=== PATIENT | female | born 1960 | race Caucasian/White ===

== ENCOUNTER 2016-09-25 06:55 | Day surgery (SDC) ==
[2014-08-09 14:12] VITALS: BMI 15.7
[2016-09-25] MEDS ORDERED: LIDOCAINE 1% 20 ML MDV ID ONE (07:20)
[2016-09-25] MEDS ORDERED: LIDOCAINE 1% 20 ML MDV ONE (07:20)
[2016-09-25] MEDS ORDERED: VERSED ONE (08:00)
[2016-09-25] MEDS ORDERED: DIPRIVAN 20 ML VIAL IVP ONE (08:00)
[2016-09-25 10:14] VITALS: BP 100/58; TEMP 98.2
--- NOTE | 2016-09-25 14:21 | OP ---
INDICATIONS FOR PROCEDURE: 56-year-old female presents for endoscopy. She was having intermittent dysphagia and difficulty eating. She states she is improved and questioned if she didn't have an MS flare. She still has occasional dysphagia to solids. She is scheduled for endoscopy investigation. MEDICATIONS: SEE ANESTHESIA NOTES. PROCEDURE: ENDOSCOPY, KITTITIAN DILATATION. REPORT: The risks, benefits, alternatives and limitations were discussed in detail with the patient. Informed consent was obtained. After adequate sedation was achieved, the video endoscope was introduced in the posterior pharynx and esophagus under direct vision and easily advanced down to the second portion of the duodenum. I then slowly withdrew. The duodenal mucosa appeared unremarkable as did the duodenal bulb. The antrum and body were relatively unremarkable. The scope was retroflexed to look at the cardia and fundus which was revealed a small hiatal hernia. I could also see a small Schatzki's ring causing minimal luminal narrowing. The scope was anteflexed and withdrawn back through the esophagus. There was a 1 cm hiatal hernia. There was a Schatzki's ring. The esophageal mucosa appeared unremarkable its entire length otherwise. I advanced the scope back down the gastric lumen, I placed a guidewire and withdrew the scope. Over the guidewire I easily advanced a 54 Fr. R[place] dilator. The patient tolerated the procedure well with stable vital signs and pulse oximetry throughout. IMPRESSION: 1. 1 CM SMALL HIATAL HERNIA 2. SCHATZKI'S RING DILATED ABOVE RECOMMENDATIONS: 1. She has improved overall from a GI perspective. I reinforced strict reflux precautions. 2. Will see her back in the office as needed. 3. She is advised to continue with small meals throughout the day and cut and chew her food into small pieces. CC: DR. WIL ESTEVES
== END 2016-09-25 09:35 | disposition home or self-care (01) ==
LOC: SURG 06:55
PROVIDERS: ATTEND Internal Medicine Gastroenterology
DX: R13.10 Dysphagia, unspecified (principal); R63.3 Feeding difficulties; K22.2 Esophageal obstruction; K44.9 Diaphragmatic hernia without obstruction or gangrene

== ENCOUNTER 2018-06-10 06:57 | Day surgery (SDC) | payer OTHER ==
[2014-08-09 14:12] VITALS: BMI 15.7
[2018-06-10] MEDS ORDERED: LIDOCAINE 1% 20 ML MDV ID STA (07:19)
[2018-06-10 07:21] VITALS: TEMP 98.1
[2018-06-10] MEDS ORDERED: DIPRIVAN 20 ML VIAL IVP ONE (09:10)
[2018-06-10] MEDS ORDERED: SUBLIMAZE ONE (09:10)
[2018-06-10] MEDS ORDERED: VERSED ONE (09:10)
[2018-06-10 16:04] VITALS: BP 141/56
--- NOTE | 2018-06-11 10:54 | OP ---
INDICATIONS FOR PROCEDURE: 57-year-old female presents for colonoscopy exam. She has a family history of colon polyps. She is scheduled for a screening exam. Her father had polyps in his sixties. She is also scheduled for endoscopy with investigation of intermittent dysphagia. MEDICATIONS: SEE ANESTHESIA NOTES. PROCEDURE: 1. ENDOSCOPY, HONDURAN DILATATION. 2. COLONOSCOPY WITH SNARE POLYPECTOMY. REPORT: The risks, benefits, alternatives and limitations were discussed in detail with the patient. Informed consent was obtained. After adequate sedation was achieved, the video endoscope was introduced in the posterior pharynx and esophagus under direct vision and easily advanced down to the second portion of the duodenum. I then slowly withdrew. The duodenal mucosa appeared unremarkable as did the duodenal bulb. The antrum and body were relatively unremarkable. The scope was retroflexed to look at the cardia and fundus which was unremarkable. The scope was anteflexed and withdrawn back through the esophagus. There was a Schatzki's ring causing minimal luminal narrowing at the GE junction. The esophagus was otherwise unremarkable. I advanced the scope back down the gastric lumen and placed guidewire and withdrew the scope. Over the guidewire I easily advanced a 54 Welsh Malian dilator. The patient tolerated the procedure well with stable vital signs and pulse oximetry throughout. The patient's bed was turned and digital rectal exam revealed good tone, no mass. The colonoscope was introduced into the rectum and was advanced under direct visual guidance to the cecum. The cecum was identified by the appendiceal orifice and IC valve. I then slowly withdrew the scope in a circumferential manner examining the mucosa quite carefully. The scope was retroflexed in the right colon and left colon to increase visualization. In the distal ascending colon there was a 1 cm sessile polyp. This was best noted on retroflex view. I lifted this polyp with a Saline injection. I then removed it using a hexagonal snare. All the polyp was removed. It was collected. The scope was then withdrawn in a circumferential manner examining the remaining colon. In the sigmoid area at 24 cm there is a semi-sessile polyp that was 8 mm in size approximately. It was removed by snare technique and retrieved. No polyp tissue was noted to be remaining. Withdrawing the scope further revealed no other abnormalities including on retroflex view of the anal canal. The prep was good. The withdrawal time was 14 minutes and 20 seconds. The patient tolerated the procedure well with stable vital signs and pulse oximetry throughout. IMPRESSION: 1. SCHATZKI'S RING DILATED ABOVE. 2. TWO (2) COLONIC POLYPS REMOVED. RECOMMENDATIONS: 1. Cut and chew her food well. 2. Await colon polyp pathology results. If there are adenomatous changes, I recommend repeat examination again in three years otherwise screening examination again in five years. 3. Will see her back in the office as needed. CC: DR. WIL ESTEVES
== END 2018-06-10 10:40 | disposition home or self-care (01) ==
LOC: SURG 06:57
PROVIDERS: ATTEND Internal Medicine Gastroenterology
DX: Z83.71 Family history of colonic polyps (principal); K22.2 Esophageal obstruction; R13.10 Dysphagia, unspecified; K63.5 Polyp of colon; D12.2 Benign neoplasm of ascending colon; D12.5 Benign neoplasm of sigmoid colon

== ENCOUNTER 2018-09-08 11:00 | Outpatient (RCR) ==
[2013-02-03 08:25] VITALS: TEMP 97.9
[2014-08-09 14:12] VITALS: BMI 15.7
--- NOTE | 2018-09-01 09:50 | RS.OPPTEV2 ---
Date of Note: 08/29/18 Visit #: 1 Number of visits approved by Insurance: NA Date of Evaluation: 08/29/18 Payer Source: Insurance Treatment Diagnosis: Neck pain, Left shoulder/scapula pain, Multiple Sclerosis History of Condition/Mechanism of Injury:: Patient reports progressive pain and stiffness in her neck and left shoulder. Prior Level of Function.....Patient was independent with: ADL's, Self Care, Caregiving, Ambulation/Mobility, Community Integration/Access Functional Limitations: Sleep, ADL's, Reaching Current Subjective/complaints:: Mrs. Ayala reports progressive pain on the left side of the neck and left shoulder pain. States she feels her neck movement is limited, especially notices this when driving. States her left shoulder pain may be from a fall she had in March of 2018. States she cannot lay very long on the left shoulder, but she also cannot lay very long on her right side because she has a deviated septum and cannot breathe well. She is unsure if she has had any recent symptoms of tingling or numbness on the left UE , because she already has numbness and tingling in the hands/fingers from Multiple Sclerosis and Raynaud's syndrome. States she mainly has neck pain when she has to turn her head.. She reports headaches at times, but she is unsure if it is related to her neck or the weather. Treatment Side (optional): Left Medical History Medical History: Hypertension, Arthritis Medical History Comments:: Multiple Sclerosis, Surgical History: Hysterectomy, (X2) Surgical History Comments:: right foot surgery Smoking Status: Never smoker Hx Home Medications: Baclofen, Atenolol, restasis, Flonase, Prolia, Citracal, Progesterone, Biest, Turmeric, Fish oil Patient's Goals: Her goal is to get relief of neck pain and left shoulder pain, and gain more mobility. Pain Assessment - Pain Description Pain Location: left side of neck and left shoulder/scapula Current Pain Intensity: 3/10 Worst Pain Intensity: 6/10 Functional Outcome Measure Neck Disability Index: 28 - G Codes & Severity Modifier G Codes & Modifier: NA Source of G Code score: NA Observation - Observation Posture: Forward Head, Scapula Asymmetry (left scapula elevated), Increased Thoracic Kyphosis, Scoliosis (thoracic with left convexity) Handedness: Right - ROM Comments: Cervical extension is approximately 50% of normal range.. Cervical flexion is WFL's with reports of "pulling" in the back of the neck. Cervical rotation bilaterally is approximately 75% of normal range. Pt denies any radiating symptoms with AROM. Demonstrates functional AROM of bilateral UE's. Left shoulder demonstrates less end range flexion, abduction, due to hypomobility of the left scapula. - Strength Comments: Bilateral UE's grossly 4+/5 throughout. - Special Tests Shoulder Empty Can (Supraspinatus) Test: Negative Left Shoulder Speed's Sign Test: Negative Left Shoulder Drop Arm Test: Negative Left Shoulder Lucia-Howie Impingement Test: Negative Left Vp [employer] Strength Left Hand Vp [employer] Strength: 30 lbs. Right Hand [employer] [place] Strength: 45 lbs. Dynamometer Testing Position: 2nd Position Palpation Comments:: Demonstrates moderate muscle guarding along the left upper traps, levator scapula, and middle traps. Reports tenderness along the superior border of the left scapula. Reports no significant tenderness and demonstrates no increased muscle tone at the suboccciptal area. Sensation - Sensation Comments: Describes impaired sensation throughout bilateral hands due to Raynauds and MS. Additional Comments: Additional Comments: Left LE shorter than the right in supine and standing. This appears to be a true leg length discrepancy with the left femur being 1 - 1.5 inches shorter than the right femur. Interventions - Exercise/Activities/Manual Therapy Exercises/Activities: Instructed in exercises to begin for HEP: stretching into cervical lateral flexion and rotation bilaterally. Also scapula mobility with depression, protraction, retraction, and elevation. Total minutes of Exercise: 6 mins Manual Therapy: NA HOME EXERCISE PROGRAM: stretching into cervical lateral flexion and rotation bilaterally. Also scapula mobility with depression, protraction, retraction, and elevation. - Charges Timed Code Treatment Minutes: 6 mins Total Treatment Time: 72 mins Procedures billed for this date of service:: Eval High complexity EVALUATION COMPLEXITY LEVEL EVALUATION COMPLEXITY LEVEL: HISTORY: High (MS, chronic neck pain, ), EXAM OF BODY SYSTEMS: High, CLINICAL PRESENTATION: High, CLINICAL DECISION MAKING: High Assessment Assessment: Mrs. Ayala presents to therapy with a diagnosis of Multiple Sclerosis and multiple joint pain. She reports her main problem at this time is left sided neck and shoulder pain. She reports limited AROM and pain in her neck with driving. Sleep is interrupted due to neck pain and having to change positions frequently due to pain in the left shoulder with left sidelying. She exhibits limited cervical spine extension and rotation. She demonstrates hypomobility of the left scapula with moderate muscle guarding in the periscapular muscles. She demonstrates no RTC involvement in the left shoulder today upon evaluation. She demonstrates potential to gain increased cervical and left shoulder/scapular mobility with manual therapy and stretching. She will also benefit from postural education and exercises to prevent return of symptoms. Patient Education: Education of diagnosis, Body/Joint mechanics, Home Exercise Program, Activity Modification, Education of Plan of Care Rehab Potential: Good Short Term Goals Goal #1: Pt independent and compliant in HEP. Goal to be met by: 09/15/18 Goal #2: Pt to demonstrate good postural awareness. Goal to be met by: 09/15/18 Goal #3: Muscle tone of left upper traps decreased to minimal. Goal to be met by: 09/15/18 Prison Goals Goal #1: Pt knows HEP and to continue ex's to maintain functional level at D/C. Goal to be met by: 10/06/18 Goal #2: Score on Neck Disability Index improved to 12. Goal to be met by: 10/06/18 Goal #3: Pt to sleep through the night w/ min. interruption from neck/shoulder pain. Goal to be met by: 10/06/18 Goal #4: Pt able to drive without limitation or pain from the cervical spine. Goal to be met by: 10/06/18 Plan - Treatment to be Provided Procedures: Therapeutic Exercises, Therapeutic Activity, Manual Therapy, Patient Education Modalities: Electrical Stimulation, Ultrasound/Phonophoresis, Hot Packs (mild heat), Mechanical Traction (cervical) Other:: NO ICE - Treatment Plan Frequency: 2-3 X week Duration: 4 weeks Dates of Prison Goals: 10/06/18 Expiration date of current Insurance Approval:: NA - Treatment Code (1) Neck pain Code(s): M54.2 - CERVICALGIA Comments: M54.2 (2) Scapular dysfunction Code(s): M89.9 - DISORDER OF BONE, UNSPECIFIED (3) Multiple sclerosis Code(s): G35 - MULTIPLE SCLEROSIS Comments: G35
--- NOTE | 2018-09-02 15:37 | RS.OPPTDN ---
Subjective Date of Note: 09/02/18 Visit #: 2 Number of visits approved by Insurance: 2-3x4 Date of Evaluation: 08/29/18 Payer Source: Insurance Treatment Diagnosis: Neck pain, Left shoulder/scapula pain, Multiple Sclerosis Current Subjective/complaints:: Patient says she is having increased pain to the L shoulder and shoulder blade today. She says she has had more house cleaning too so she is not sure if her symptoms are related to PT or extra chores. She points to the superior border of scapula and L UT for pain location. She admits being "slumped over" and has had poor posture. - Treatment Modality: Ultrasound Parameters/Method Applied: continuous @ 1.5 w/cm2 x 12 mins to the L UT and along superior and inferior border of scapula Patient Position: Sitting - Heat/Cryotherapy Treatment: Hot Pack (L cervical and scapula x 20 mins in sitting) Interventions - Exercise/Activities/Manual Therapy Exercises/Activities: Cervical PROM for SB and rotation to the R. Patient receives scapular depression and she performs shoulder shrugs and scap adduction. Reviewed HEP and postural techniques. Total minutes of Exercise: 9 Manual Therapy: NA HOME EXERCISE PROGRAM: stretching into cervical lateral flexion and rotation bilaterally. Also scapula mobility with depression, protraction, retraction, and elevation. - Charges Timed Code Treatment Minutes: 21 Total Treatment Time: 41 Procedures billed for this date of service:: hp, u/s, ex Assessment: Patient presents with moderate increase in muscle guarding to the L UT and scapula as well as increased pain unsure if related to housework or PT activities at [facility]. Patient appears to respond to treatment today well. She has mild sensitivity through palpation at the L UT/superior/inferior scap, but able to dotty u/s and felt relief. She should benefit from further modalities and therex. Patient Education: Education of diagnosis, Body/Joint mechanics, Home Exercise Program, Education of Plan of Care Patient demonstrates compliance with HEP?: Yes Short Term Goals Goal #1: Pt independent and compliant in HEP. Goal to be met by: 09/15/18 Progress towards Goal:: Progressing Goal #2: Pt to demonstrate good postural awareness. Goal to be met by: 09/15/18 Goal #3: Muscle tone of left upper traps decreased to minimal. Goal to be met by: 09/15/18 Assisted Goals Goal #1: Pt knows HEP and to continue ex's to maintain functional level at D/C. Goal to be met by: 10/06/18 Goal #2: Score on Neck Disability Index improved to 12. Goal to be met by: 10/06/18 Goal #3: Pt to sleep through the night w/ min. interruption from neck/shoulder pain. Goal to be met by: 10/06/18 Goal #4: Pt able to drive without limitation or pain from the cervical spine. Goal to be met by: 10/06/18 Plan Dates of Assisted Goals: 10/06/18 Expiration date of current Insurance Approval:: 10/06/18 PLAN: Patient to continue for treatment to the L shoulder/neck to relieve pain and improve posture/motion.
--- NOTE | 2018-09-05 12:09 | RS.OPPTDN ---
Subjective Date of Note: 09/05/18 Visit #: 3 Number of visits approved by Insurance: 2-3x4 Date of Evaluation: 08/29/18 Payer Source: Insurance Treatment Diagnosis: Neck pain, Left shoulder/scapula pain, Multiple Sclerosis Current Subjective/complaints:: Patient says she is feeling better in general. She says she was having some difficulty dotty house chores (was not specific), but are becoming easier to complete. She says she feels the u/s is helping reduce neck and shoulder blade pain. - Treatment Modality: Ultrasound Parameters/Method Applied: continous @ 1.5 w/cm2 x 12 mins to the L UT and scapula particularly the suprascapular and infrascapular region. Patient Position: Sitting - Heat/Cryotherapy Treatment: Hot Pack (cervical and L shoulder/scapula in sitting x 15 mins) Interventions - Exercise/Activities/Manual Therapy Exercises/Activities: Cervical PROM for SB and rotation to the R. Patient receives scapular depression and she performs shoulder shrugs and scap adduction. Begins red tband wand scapular retraction in sitting x 10. Provided red tband for home. Reviewed HEP and postural techniques. Total minutes of Exercise: 12 Manual Therapy: NA HOME EXERCISE PROGRAM: stretching into cervical lateral flexion and rotation bilaterally. Also scapula mobility with depression, protraction, retraction, and elevation. - Charges Timed Code Treatment Minutes: 24 Total Treatment Time: 39 Procedures billed for this date of service:: hp, u/s, ex Assessment: Patient experiencing less L sided neck and scapular pain and also feeling better in general since beginning therapy. She admits improved ability to perform (vague) tasks and appears to dotty activity in dept without c/o's. She is progressing with HEP including tband to work on postural strengthening. Patient Education: Education of diagnosis, Body/Joint mechanics, Home Exercise Program Patient demonstrates compliance with HEP?: Yes Short Term Goals Goal #1: Pt independent and compliant in HEP. Goal to be met by: 09/15/18 Progress towards Goal:: Progressing Goal #2: Pt to demonstrate good postural awareness. Goal to be met by: 09/15/18 Goal #3: Muscle tone of left upper traps decreased to minimal. Goal to be met by: 09/15/18 Nursing Home Admissions Director Goals Goal #1: Pt knows HEP and to continue ex's to maintain functional level at D/C. Goal to be met by: 10/06/18 Goal #2: Score on Neck Disability Index improved to 12. Goal to be met by: 10/06/18 Goal #3: Pt to sleep through the night w/ min. interruption from neck/shoulder pain. Goal to be met by: 10/06/18 Goal #4: Pt able to drive without limitation or pain from the cervical spine. Goal to be met by: 10/06/18 Plan Dates of Nursing Home Admissions Director Goals: 10/06/18 Expiration date of current Insurance Approval:: 10/06/18 PLAN: Continue with modalities and therex for the cervical and scapular region.
--- NOTE | 2018-09-08 12:02 | RS.OPPTDN ---
Subjective Date of Note: 09/08/18 Visit #: 4 Number of visits approved by Insurance: 2-3 x 4 Date of Evaluation: 08/29/18 Payer Source: Insurance Treatment Diagnosis: Neck pain, Left shoulder/scapula pain, Multiple Sclerosis Current Subjective/complaints:: Patient says pain seems to be getting better, but right now she is battling allergies. Reports red tband is getting too easy for her. She says she slept wrong (on her L side) saying it caused L shoulder pain. - Treatment Modality: Ultrasound Parameters/Method Applied: continuous @ 1.5 w/cm2 x 10 mins to the L UT and superior/inferior scap Patient Position: Sitting - Heat/Cryotherapy Treatment: Hot Pack (cervical and over the L scapula x 20 mins in sitting) Interventions - Exercise/Activities/Manual Therapy Exercises/Activities: Cervical PROM for SB and rotation bilaterally, but concentration on the L. Patient receives scapular depression and she performs shoulder shrugs and scap adduction. Begins with green tband wand scapular retraction in sitting x 10. Green tband for bilateral shoulder ER x 10. Discussed postural mechanics. Gave green tband to progress to later in the week. Reviewed HEP and postural techniques. Total minutes of Exercise: 12 Manual Therapy: NA HOME EXERCISE PROGRAM: stretching into cervical lateral flexion and rotation bilaterally. Also scapula mobility with depression, protraction, retraction, and elevation. - Charges Timed Code Treatment Minutes: 22 Total Treatment Time: 42 Procedures billed for this date of service:: hp, u/s, ex Assessment: Patient had increased soreness to the L shoulder today possibly due to laying/sleeping on it. She has had improved overall pain with therapy and should continue with further treatment. She dotty all therex well and will be progressing with bands at home to assist with postural strength. Patient Education: Education of diagnosis, Body/Joint mechanics, Home Exercise Program, Education of Plan of Care Patient demonstrates compliance with HEP?: Yes Short Term Goals Goal #1: Pt independent and compliant in HEP. Goal to be met by: 09/15/18 Progress towards Goal:: Progressing Goal #2: Pt to demonstrate good postural awareness. Goal to be met by: 09/15/18 Progress towards Goal:: Progressing Goal #3: Muscle tone of left upper traps decreased to minimal. Goal to be met by: 09/15/18 Outside Sales Executive Goals Goal #1: Pt knows HEP and to continue ex's to maintain functional level at D/C. Goal to be met by: 10/06/18 Goal #2: Score on Neck Disability Index improved to 12. Goal to be met by: 10/06/18 Goal #3: Pt to sleep through the night w/ min. interruption from neck/shoulder pain. Goal to be met by: 10/06/18 Goal #4: Pt able to drive without limitation or pain from the cervical spine. Goal to be met by: 10/06/18 Plan Dates of Outside Sales Executive Goals: 10/06/18 Expiration date of current Insurance Approval:: 10/06/18 PLAN: Continue with modalties and strengthening.
--- NOTE | 2018-09-09 11:41 | RS.CXNS ---
Date of scheduled appointment: 09/12/18 Type: Cancel Reason for Cancel/NS: pt cancelled due to expecting grandchild on that date. Will call next week to schedule future appts.
== END 2018-09-18 23:59 ==
PROVIDERS: ATTEND Family Medicine
DX: G35 Multiple sclerosis (principal); M25.50 Pain in unspecified joint; M54.2 Cervicalgia; M89.9 Disorder of bone, unspecified

== ENCOUNTER 2018-10-03 14:00 | Outpatient (RCR) ==
[2013-02-03 08:25] VITALS: TEMP 97.9
[2014-08-09 14:12] VITALS: BMI 15.7
--- NOTE | 2018-09-22 15:40 | RS.OPPTDN ---
Subjective Date of Note: 09/22/18 Visit #: 5 Number of visits approved by Insurance: 2-3x 4 Date of Evaluation: 08/29/18 Payer Source: Insurance Treatment Diagnosis: Neck pain, Left shoulder/scapula pain, Multiple Sclerosis Current Subjective/complaints:: Patient reports her neck and L shoulder felt much better after u/s her previous sessions. She says she has been performing postural exercises, but says the neck ROM hurts. She says she has driven to [place] to see her new grandbaby, so she has not had PT in over a week. - Treatment Modality: Ultrasound Parameters/Method Applied: continuous @ 1.5 w/cm2 x 12 mins to the L cervical paraspinals and UT and shoulder Patient Position: Sitting (cervical and scapula at the L side in sitting) - Heat/Cryotherapy Treatment: Hot Pack Interventions - Exercise/Activities/Manual Therapy Exercises/Activities: Reviewed HEP and postural mechanics Manual Therapy: NA HOME EXERCISE PROGRAM: stretching into cervical lateral flexion and rotation bilaterally. Also scapula mobility with depression, protraction, retraction, and elevation. - Charges Timed Code Treatment Minutes: 15 Total Treatment Time: 35 Procedures billed for this date of service:: hp, u/s Assessment: Patient demo mild increase in muscle guarding to the L UT. She has maintained postural exercises while she was on break seeing her granddaughter. She admits relief after todays session. Patient Education: Body/Joint mechanics, Home Exercise Program, Education of Plan of Care Patient demonstrates compliance with HEP?: Yes Short Term Goals Goal #1: Pt independent and compliant in HEP. Goal to be met by: 09/15/18 Progress towards Goal:: Progressing Goal #2: Pt to demonstrate good postural awareness. Goal to be met by: 09/15/18 Progress towards Goal:: Progressing Goal #3: Muscle tone of left upper traps decreased to minimal. Goal to be met by: 09/15/18 [facility] Goals Goal #1: Pt knows HEP and to continue ex's to maintain functional level at D/C. Goal to be met by: 10/06/18 Goal #2: Score on Neck Disability Index improved to 12. Goal to be met by: 10/06/18 Goal #3: Pt to sleep through the night w/ min. interruption from neck/shoulder pain. Goal to be met by: 10/06/18 Goal #4: Pt able to drive without limitation or pain from the cervical spine. Goal to be met by: 10/06/18 Plan Dates of [facility] Goals: 10/06/18 Expiration date of current Insurance Approval:: 10/06/18 PLAN: continue for modalities and therex for scapular strength
--- NOTE | 2018-09-24 15:25 | RS.OPPTDN ---
Subjective Date of Note: 09/24/18 Visit #: 6 Number of visits approved by Insurance: [id number] Date of Evaluation: 08/29/18 Payer Source: Insurance Treatment Diagnosis: Neck pain, Left shoulder/scapula pain, Multiple Sclerosis Current Subjective/complaints:: Patient says, "My shoulder is a lot better and I 'm not very tender anymore in my neck and shoulder blade." She says she did try her neck ROM exercises last night, but hurt again. She was asked to make a point to see if it was with mobility to the L or R. She asks if this could be from bone spurs. - Treatment Modality: Ultrasound Parameters/Method Applied: continous @ 1.5 w/cm2 x 12 mins to the L UT, scapula , and shoulder Patient Position: Sitting - Heat/Cryotherapy Treatment: Hot Pack (positioned over the L cervical and scapula and shoulder sitting x 20 mins) Interventions - Exercise/Activities/Manual Therapy Exercises/Activities: Reviewed HEP and postural mechanics and instructed in being conscientious about specifically which side hurt and which exercise she was performing. Manual Therapy: STM and DTM throughout the L UT and scapula Total minutes of Manual Therapy: 13 HOME EXERCISE PROGRAM: stretching into cervical lateral flexion and rotation bilaterally. Also scapula mobility with depression, protraction, retraction, and elevation. - Charges Timed Code Treatment Minutes: 25 Total Treatment Time: 45 Procedures billed for this date of service:: hp, u/s, MT Assessment: Patient experiencing less sensitivity and tenderness to mild to moderate palpation to the L UT and scapula allowing for MT. She has been experiencing overall less pain and significantly to the shoulder specifically. She should benefit from ROM activities and postural strengthening. Patient Education: Education of diagnosis, Body/Joint mechanics, Home Exercise Program, Education of Plan of Care Patient demonstrates compliance with HEP?: Yes Short Term Goals Goal #1: Pt independent and compliant in HEP. Goal to be met by: 09/15/18 Progress towards Goal:: Progressing Goal #2: Pt to demonstrate good postural awareness. Goal to be met by: 09/15/18 Progress towards Goal:: Progressing Goal #3: Muscle tone of left upper traps decreased to minimal. Goal to be met by: 09/15/18 Progress towards Goal:: Progressing Assisted Goals Goal #1: Pt knows HEP and to continue ex's to maintain functional level at D/C. Goal to be met by: 10/06/18 Progress towards goal: Progressing Goal #2: Score on Neck Disability Index improved to 12. Goal to be met by: 10/06/18 Comments: Reassess next week Goal #3: Pt to sleep through the night w/ min. interruption from neck/shoulder pain. Goal to be met by: 10/06/18 Progress towards goal: Progressing Goal #4: Pt able to drive without limitation or pain from the cervical spine. Goal to be met by: 10/06/18 Plan Dates of Assisted Goals: 10/06/18 Expiration date of current Insurance Approval:: 10/06/18 PLAN: Patient to continue with modalities and MT/therex.
--- NOTE | 2018-09-26 14:20 | RS.OPPTDN ---
Subjective Date of Note: 09/26/18 Visit #: 7 Number of visits approved by Insurance: na Date of Evaluation: 08/29/18 Payer Source: Insurance Treatment Diagnosis: Neck pain, Left shoulder/scapula pain, Multiple Sclerosis Current Subjective/complaints:: Patient says she feels she had a reaction from the moist heat last session because she was sore at the L shoulder blade wrapping around the L side and breast. She says she also may have had an MS "flare up." She reports she wants to try the moist heat again and denies feeling any soreness from the MT. States she can turn her head better without pain and can drive easier to [employer], where before she was avoiding it due to pain. Pain Assessment - Pain Description Pain Location: Today: L scapula only. No longer into the L shoulder or L side/ breast. - Treatment Modality: Ultrasound Parameters/Method Applied: continous @ 1.5 w/cm2 x 12 mins to the L scapula and UT Patient Position: Sitting - Heat/Cryotherapy Treatment: Hot Pack (12 mins to the L scapula/shoulder sitting ) Interventions - Exercise/Activities/Manual Therapy Exercises/Activities: Reviewed HEP and postural mechanics. Discussed benefits of MT Manual Therapy: STM and DTM throughout the L UT and scapula Total minutes of Manual Therapy: 13 HOME EXERCISE PROGRAM: stretching into cervical lateral flexion and rotation bilaterally. Also scapula mobility with depression, protraction, retraction, and elevation. - Charges Timed Code Treatment Minutes: 25 Total Treatment Time: 37 Procedures billed for this date of service:: hp, MT, u/s Assessment: Patient dotty increased AROM of the cspine allowing for improved driving and looking over her shoulder/turning. She is able to perform all Cspine ROM actively without pain with experiencing mild soreness only with L SB end range. All postural strengthening performed at home without symptoms. She experienced increased soreness after her previous session and believed it could be related to moist heat, but she has had this in the past sessions without c/ o. We did add MT last session and she could have been a little sore from it, but unsure about the symptoms wrapping around her L side to breast. She does have mild increase in muscle guarding to the L UT, but no active trigger points. Very small 2-3 knots exist in this location. She expressed relief following session today. Patient Education: Education of diagnosis, Body/Joint mechanics, Home Exercise Program, Education of Plan of Care Patient demonstrates compliance with HEP?: Yes Short Term Goals Goal #1: Pt independent and compliant in HEP. Goal to be met by: 09/15/18 Progress towards Goal:: Progressing Goal #2: Pt to demonstrate good postural awareness. Goal to be met by: 09/15/18 Progress towards Goal:: Progressing Comments:: better Goal #3: Muscle tone of left upper traps decreased to minimal. Goal to be met by: 09/15/18 Progress towards Goal:: Progressing Transverse Abdominal Muscle Surgeon Goals Goal #1: Pt knows HEP and to continue ex's to maintain functional level at D/C. Goal to be met by: 10/06/18 Progress towards goal: Progressing Goal #2: Score on Neck Disability Index improved to 12. Goal to be met by: 10/06/18 Goal #3: Pt to sleep through the night w/ min. interruption from neck/shoulder pain. Goal to be met by: 10/06/18 Progress towards goal: Progressing Goal #4: Pt able to drive without limitation or pain from the cervical spine. Goal to be met by: 10/06/18 Plan Dates of Transverse Abdominal Muscle Surgeon Goals: 10/06/18 Expiration date of current Insurance Approval:: 10/06/18 PLAN: Patient to continue for modalities and MT to relieve pain and progress therex as dotty
--- NOTE | 2018-09-30 15:18 | RS.OPPTDN ---
Subjective Date of Note: 09/30/18 Visit #: 8 Number of visits approved by Insurance: na Date of Evaluation: 08/29/18 Payer Source: Insurance Treatment Diagnosis: Neck pain, Left shoulder/scapula pain, Multiple Sclerosis Current Subjective/complaints:: Patient says she had some increase in L side neck soreness due to helping her hoist items upward to fix leak in chimney. She says she also had to prop herself at bedtime and left her neck in an awkward position that caused some discomfort later on. She says she has been performing HEP though and it seems to be helping. C/o not being able to cook or bake as much as she would like because of the repetitive movement of the R arm with stirring/mashing. - Treatment Modality: Ultrasound Parameters/Method Applied: continuous @ 1.5 w/cm2 x 12 mins to the L UT and shoulder Patient Position: Sitting Interventions - Exercise/Activities/Manual Therapy Exercises/Activities: Instructed for home and performed: scap retraction, bilateral shoulder ER, pull downs on multigym all with green tband, triceps/ biceps with red tband. Total minutes of Exercise: 16 Manual Therapy: na HOME EXERCISE PROGRAM: stretching into cervical lateral flexion and rotation bilaterally. Also scapula mobility with depression, protraction, retraction, and elevation. - Charges Timed Code Treatment Minutes: 28 Total Treatment Time: 35 Procedures billed for this date of service:: u/s ex Assessment: Patient arrived 10 mins late, omitted hp due to patient request since she just had heat applied prior to appt. She has experienced increased soreness recently from assisting with chimney work handing items off to him overhead as well as sleeping in propped position. Pain has been relieved some since then. She continues to have difficulty with prolonged/repetitive prep for baking even with switching from R (dominant) hand to L i.e. stirring/ mixing. Provided exercises that should strengthen the UE's with tbands as well as continued with postural techniques and strength. Patient Education: Education of diagnosis, Body/Joint mechanics, Home Exercise Program Patient demonstrates compliance with HEP?: Yes Short Term Goals Goal #1: Pt independent and compliant in HEP. Goal to be met by: 09/15/18 Progress towards Goal:: Met Goal #2: Pt to demonstrate good postural awareness. Goal to be met by: 09/15/18 Progress towards Goal:: Progressing Goal #3: Muscle tone of left upper traps decreased to minimal. Goal to be met by: 09/15/18 Progress towards Goal:: Met Trainman Goals Goal #1: Pt knows HEP and to continue ex's to maintain functional level at D/C. Goal to be met by: 10/06/18 Progress towards goal: Progressing Goal #2: Score on Neck Disability Index improved to 12. Goal to be met by: 10/06/18 Comments: Reassess next week Goal #3: Pt to sleep through the night w/ min. interruption from neck/shoulder pain. Goal to be met by: 10/06/18 Progress towards goal: Progressing Goal #4: Pt able to drive without limitation or pain from the cervical spine. Goal to be met by: 10/06/18 Progress towards goal: Progressing Plan Dates of Trainman Goals: 10/06/18 Expiration date of current Insurance Approval:: 10/06/18 PLAN: Continue modalities and therex to strengthen postural mm's and to demo improved awareness/correction
--- NOTE | 2018-10-01 15:19 | RS.OPPTDN ---
Subjective Date of Note: 10/01/18 Visit #: 9 Number of visits approved by Insurance: na Date of Evaluation: 08/29/18 Payer Source: Insurance Treatment Diagnosis: Neck pain, Left shoulder/scapula pain, Multiple Sclerosis Current Subjective/complaints:: Patient denies any pain or increase in symptoms from performing progressed therex yesterday. She says she has been performing HEP BID. 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 She states overall, pain is lessened to the L UT/scapula. She also inquires about going to a massage therapist on a weekly or monthly basis. - Treatment Modality: Ultrasound Parameters/Method Applied: continuous @ 1.5 w/cm2 x 12 mins to the L UT and scapula Patient Position: Sitting Interventions - Exercise/Activities/Manual Therapy Exercises/Activities: Patient performs: scapular adduction, shoulder shrugs, green tband for bilateral shoulder ER, scapular retraction, bilateral shoulder extension, bilateral shoulder horizontal abd, 2# wand for bilateral shoulder flexion, triceps, and pull downs all 2x10 reps. Total minutes of Exercise: 16 Manual Therapy: na HOME EXERCISE PROGRAM: stretching into cervical lateral flexion and rotation bilaterally. Also scapula mobility with depression, protraction, retraction, and elevation. - Charges Timed Code Treatment Minutes: 28 Total Treatment Time: 35 Procedures billed for this date of service:: u/s, ex Assessment: She is able to perform all therex with less cueing for correction and able to demo improved posture. Only general muscle fatigue noted. She demo only slight increase in muscle guarding to the L UT and also less tender to moderate palpation. Patient Education: Home Exercise Program, Education of Plan of Care Patient demonstrates compliance with HEP?: Yes Short Term Goals Goal #1: Pt independent and compliant in HEP. Goal to be met by: 09/15/18 Progress towards Goal:: Met Goal #2: Pt to demonstrate good postural awareness. Goal to be met by: 09/15/18 Progress towards Goal:: Progressing Goal #3: Muscle tone of left upper traps decreased to minimal. Goal to be met by: 09/15/18 Progress towards Goal:: Met Sql Server Architect Goals Goal #1: Pt knows HEP and to continue ex's to maintain functional level at D/C. Goal to be met by: 10/06/18 Progress towards goal: Progressing Goal #2: Score on Neck Disability Index improved to 12. Goal to be met by: 10/06/18 Goal #3: Pt to sleep through the night w/ min. interruption from neck/shoulder pain. Goal to be met by: 10/06/18 Progress towards goal: Progressing Goal #4: Pt able to drive without limitation or pain from the cervical spine. Goal to be met by: 10/06/18 Progress towards goal: Progressing Plan Dates of Sql Server Architect Goals: 10/06/18 Expiration date of current Insurance Approval:: 10/06/18 PLAN: Patient to continue with progressing postural strengthening.
--- NOTE | 2018-10-03 15:19 | RS.OPPTDN ---
Subjective Date of Note: 10/03/18 Visit #: 10 Number of visits approved by Insurance: NA Date of Evaluation: 08/29/18 Payer Source: Insurance Treatment Diagnosis: Neck pain, Left shoulder/scapula pain, Multiple Sclerosis Pain Assessment - Pain Description Pain Location: cervical /scapular area Pain Description: Tightness, Dull, Aching, Chronic Current Pain Intensity: not rated - Treatment Modality: Ultrasound Parameters/Method Applied: 10 mins. to L cervical.scapular area @ 1.5 w/cm2 , continuous mode. Patient Position: Sitting Interventions - Exercise/Activities/Manual Therapy Exercises/Activities: Discussed the HEP while receiving manual therapy. Total minutes of Exercise: 0 Manual Therapy: 35 mins. soft tissue mobs to cervical ,UT's region. Total minutes of Manual Therapy: 35 HOME EXERCISE PROGRAM: stretching into cervical lateral flexion and rotation bilaterally. Also scapula mobility with depression, protraction, retraction, and elevation. - Charges Timed Code Treatment Minutes: 35 Total Treatment Time: 45 Procedures billed for this date of service:: US,manual 2 Assessment: Patient reports less tenderness along the medial border fo the L scapula today.She has good understanding of the cervical exercises ,as she demos them during the manual therapy.She reports R upper trap tightness as she rotates the neck to the L. Patient Education: Body/Joint mechanics, Home Exercise Program Patient demonstrates compliance with HEP?: Yes Short Term Goals Goal #1: Pt independent and compliant in HEP. Goal to be met by: 09/15/18 Progress towards Goal:: Met Goal #2: Pt to demonstrate good postural awareness. Goal to be met by: 09/15/18 Progress towards Goal:: Progressing Goal #3: Muscle tone of left upper traps decreased to minimal. Goal to be met by: 09/15/18 Progress towards Goal:: Met Longterm Goals Goal #1: Pt knows HEP and to continue ex's to maintain functional level at D/C. Goal to be met by: 10/06/18 Progress towards goal: Progressing Goal #2: Score on Neck Disability Index improved to 12. Goal to be met by: 10/06/18 Goal #3: Pt to sleep through the night w/ min. interruption from neck/shoulder pain. Goal to be met by: 10/06/18 Progress towards goal: Progressing Goal #4: Pt able to drive without limitation or pain from the cervical spine. Goal to be met by: 10/06/18 Progress towards goal: Progressing Plan Dates of Judo Instructor Goals: 10/06/18 Expiration date of current Insurance Approval:: NA PLAN: Cont. PT to decrease pain ,improve motion in the cervical /scapular region.
--- NOTE | 2018-10-06 11:24 | RS.CXNS ---
Date of scheduled appointment: 10/06/18 Type: Cancel Reason for Cancel/NS: no reason given
== END 2018-10-16 23:59 ==
PROVIDERS: ATTEND Family Medicine
DX: G35 Multiple sclerosis (principal); M25.50 Pain in unspecified joint